=== PATIENT | female | born 1950 | race Caucasian/White ===

== ENCOUNTER 2020-11-02 13:52 | Inpatient (IN) | payer OTHER ==
[~2020-11-02] VITALS: Ht 154.9 cm; Wt 81.6 kg
[~2020-11-02 13:52] MED LIST: LEVAQUIN750 MG PO; MUCINEX DM TABL1 BOX PO; TESSALON PERLE100 M1 PO
== END 2020-11-08 19:29 | disposition home or self-care (01) | DRG 690 ==
LOC: ER 13:52 → SEC-K 20:37 → MEDJ 20:37
PROVIDERS: ADMIT Internal Medicine; ATTEND Internal Medicine
PROC: BW24ZZZ Computerized Tomography (CT Scan) of Chest and Abdomen (ICD-10-PCS; principal; 2020-11-06)
DX: N30.00 Acute cystitis without hematuria (principal); Z16.12 Extended spectrum beta lactamase (ESBL) resistance; E87.1 Hypo-osmolality and hyponatremia; B96.29 Other Escherichia coli [E. coli] as the cause of diseases classified elsewhere; K29.70 Gastritis, unspecified, without bleeding; I10 Essential (primary) hypertension; E87.6 Hypokalemia; E03.8 Other specified hypothyroidism

== ENCOUNTER 2021-09-16 04:42 | Emergency (ER) | payer OTHER ==
[~2021-09-16] VITALS: Ht 154.9 cm; Wt 72.6 kg
[2021-09-16] MEDS ORDERED: VASOTEC20 M1 (04:58)
[2021-09-16] MEDS ORDERED: CHILDREN'S ASPI81 MG (04:58)
[2021-09-16] MEDS ORDERED: SYNTHROID125 MCG (04:58)
== END 2021-09-16 14:15 | disposition home or self-care (01) ==
LOC: ER 04:42
DX: E87.1 Hypo-osmolality and hyponatremia (principal); K29.00 Acute gastritis without bleeding; Z03.818 Encounter for observation for suspected exposure to other biological agents ruled out